=== PATIENT | male | born 1990 | race Two or more races ===

== ENCOUNTER 2021-02-15 10:38 | Emergency (ER) | payer BC ==
[2021-02-15] MEDS ORDERED: Ibuprofen 600 MG Tab PO ONE (10:53)
--- NOTE | 2021-02-15 11:25 | EDM.PDOC ---
ED HPI GENERAL MEDICAL PROBLEM - General Chief Complaint: Lower Extremity Injury/Pain Stated Complaint: INJURED FOOT Time Seen by Provider: 02/15/21 10:46 Source of Information: Reports: Patient - History of Present Illness INITIAL COMMENTS - FREE TEXT/NARRATIVE: Patient presents complaint of right foot pain. The patient was going on the stairs and his foot curled underneath him causing pain to the mid right foot. No head or neck trauma. No numbness or weakness. Moderate discomfort worse with movement Right Feet Pain Score (Numeric/FACES): 5 - Related Data Allergies Allergy/AdvReac Type Severity Reaction Status Date / Time No Known Allergies Allergy Verified 02/15/21 10:41 Home Meds: Home Meds LORazepam [Ativan] 0.5 mg PO TID PRN 02/15/21 [History] Sertraline [Zoloft] 25 mg PO DAILY 02/15/21 [History] Past Medical History HEENT History: Reports: Other (See Below) Other HEENT History: Tubes in ears when young Psychiatric History: Reports: Anxiety, Depression - Infectious Disease History Infectious Disease History: Reports: Chicken Pox, Shingles - Past Surgical History Musculoskeletal Surgical History: Reports: Other (See Below) Other Musculoskeletal Surgeries/Procedures:: Plate in right arm due to fracture, pins in left foot due to surgery Social & Family History - Family History Family Medical History: No Pertinent Family History - Tobacco Use Tobacco Use Status *Q: Current Every Day Tobacco User Years of Tobacco use: 18 Packs/Tins Daily: 1 - Caffeine Use Caffeine Use: Reports: Coffee, Energy Drinks - Recreational Drug Use Recreational Drug Use: Yes Recreational Drug Type: Reports: Marijuana/Hashish Recreational Drug Use Frequency: Daily Review of Systems - Review of Systems Review Of Systems: See Below Musculoskeletal: Reports: Foot Pain Skin: Denies: Rash Neurological: Denies: Numbness, Weakness ED EXAM, GENERAL - Physical Exam Exam: See Below Free Text/Narrative:: CONSTITUTIONAL: well appearing in no acute distress SKIN: dry, and intact without rash HENT: Normocephalic, atraumatic, NECK: normal range of motion PULMONARY: normal chest rise and fall, no respiratory distress or stridor NEUROLOGIC: normal speech, moves all extremities, grossly non-focal MUSCULOSKELETAL: Tenderness and swelling to the right midfoot. Strong dorsalis pedis pulse. Cap refill less than 2 seconds. Sensorimotor function intact PSYCHIATRIC: normal mood and affect Course - Vital Signs Text/Narrative:: Fracture, dislocation, ligamentous injury, other Patient presents outlined above. X-rays negative for fracture. She is having significant amount of pain and is not able to bear weight. He will be given Tyson wrap and crutches and will have him follow-up with the roll cutting operator ensure that there is no ligamentous or other concerning injuries. Patient is advised to repeat x-ray otherwise in 1 week to exclude occult fracture and ibuprofen with ice and elevation Last Recorded V/S: Last Vital Signs Temp 36.6 C 02/15/21 10:42 Pulse 72 02/15/21 11:51 Resp 16 02/15/21 11:51 BP 133/67 02/15/21 11:51 Pulse Ox 97 02/15/21 11:51 - Orders/Labs/Meds Meds: Medications Discontinued Medications Generic Name Dose Route Start Last Admin Trade Name Nikhilq PRN Reason Stop Dose Admin Ibuprofen 600 mg 02/15/21 10:53 02/15/21 11:00 Ibuprofen 600 Mg Tab PO 02/15/21 10:54 600 mg ONETIME ONE Administration Departure - Departure Time of Disposition: 11:57 Disposition: Home, Self-Care 01 Condition: Good Clinical Impression: Foot sprain - Discharge Information Instructions: Foot Sprain Referrals: Vishal Frost DPM [Physician] - 2 Days Forms: ED Department Discharge Additional Instructions: Return for numbness, weakness, or change in condition. Take ibuprofen [id number] for pain. Ice and elevation. Follow-up with the roll cutting operator early this coming week, Dr. Frost, with [facility] foot [facility] ankle. Please consider repeat x-ray and 1 week if pain persist to exclude occult (hidden) fracture. Sepsis Event Note (ED) - Evaluation Sepsis Screening Result: No Definite Risk - Focused Exam Vital Signs: Vital Signs Temp Pulse Resp BP Pulse Ox 02/15/21 11:51 72 16 133/67 97 02/15/21 10:42 36.6 C 95 18 131/74 100
--- NOTE | 2021-02-15 11:46 | CR ---
HISTORY: Right foot pain. TECHNIQUE: Three views of the right foot. COMPARISON: No prior. FINDINGS: No acute fracture. No malalignment. Joint spaces maintained. No erosions. No destructive change. No radiopaque foreign body or soft tissue gas. IMPRESSION: No acute fracture or malalignment. Dictated by Leonel Epps MD @ 02/15/2021 11:45:05 AM (Electronically Signed)
== END 2021-02-15 12:28 | disposition home or self-care (01) ==
LOC: MW.ED 10:38
DX: S93.601A Unspecified sprain of right foot, initial encounter (principal); Z72.0 Tobacco use; X50.1XXA Overexertion from prolonged static or awkward postures, initial encounter
CPT/HCPCS: 73630; 99283; A9270